=== PATIENT | female | born 1995 | race Caucasian/White ===

== ENCOUNTER 2018-07-28 04:26 | Emergency (ER) | payer BC ==
[~2018-07-28] VITALS: Ht 157.5 cm; Wt 70.5 kg
[2018-07-28 04:36] VITALS: Ht 157.5 cm; Wt 70.5 kg
[2018-07-28] MEDS ORDERED: PRENAVITE1 TAB PO (04:37)
[2018-07-28 05:27] LABS: BASOPHILS 0.7 % (0-2); EOSINOPHILS 4.5 % (0-7); HEMATOCRIT 35.3 % (36.0-48.0); HEMOGLOBIN 11.7 g/dL (12-16); IMMATURE GRANULOCYTES 0.1 % (0-5); LYMPHOCYTES 27.8 % (15-50); MCH 27.1 pg (26.0-34.0); MCHC 33.1 g/dL (31.0-37.0); MCV 81.9 fL (80.0-100.0); MEAN PLATELET VOLUME 10.6 fL (7.4-10.4); MONOCYTES 10.4 % (2-11); NEUTROPHILS 56.5 % (40-80); RBC 4.31 10x6/uL (4.00-5.40); RDW 13.7 % (11.5-14.5); WBC 8.5 10x3/uL (4.8-10.8)
[2018-07-28 05:38] LABS: PLATELET COUNT 238 10x3/uL (130-400)
[2018-07-28 05:43] LABS: ALBUMIN 3.4 g/dL (3.4-5.0); ALKALINE PHOSPHATASE 48 U/L (46-116); ALT (SGPT) 17 U/L (10-68); BILIRUBIN - TOTAL 0.75 mg/dL (0.2-1.3); CALC OSMOLALITY 271 mosm/kg (275-300); CALCIUM 8.7 mg/dL (8.5-10.1); CARBON DIOXIDE 24.2 mmol/L (21.0-32.0); CHLORIDE - SERUM 102 mmol/L (98-107); CREATININE - SERUM 0.6 mg/dL (0.6-1.3); GLUCOSE 102 mg/dL (74-106); POTASSIUM - SERUM 3.5 mmol/L (3.5-5.1); PROTEIN - SERUM 6.9 g/dL (6.4-8.2); SODIUM 136 mmol/L (136-145); UREA NITROGEN 12 mg/dL (7-18); eGFR NON AFRICAN AMERICAN > 90 mL/min (90-120)
[2018-07-28] MEDS ORDERED: ZOFRAN ODT4 MG/UDTAB PO (05:59)
[2018-07-28 06:00] LABS: APPEARANCE CLEAR (CLEAR); BILIRUBIN NEGATIVE (NEGATIVE); COLOR YELLOW (YELLOW); GLUCOSE NEGATIVE (NEGATIVE); KETONE NEGATIVE (NEGATIVE); NITRITE NEGATIVE (NEGATIVE); PROTEIN NEGATIVE (NEGATIVE); SPECIFIC GRAVITY 1.015 (1.005-1.020); UROBILINOGEN NORMAL (NORMAL)
[2018-07-28 06:07] LABS: HCG - QUANTITATIVE (MATERNAL) 46781 mIU/mL
[2018-07-28 08:44] VITALS: BP 110/63
== END 2018-07-28 08:45 | disposition home or self-care (01) ==
LOC: D.ER 04:26
PROVIDERS: Family Medicine
DX: O26.891 Other specified pregnancy related conditions, first trimester (principal); Z3A.01 Less than 8 weeks gestation of pregnancy; R10.9 Unspecified abdominal pain

== ENCOUNTER 2018-09-25 15:53 | Emergency (ER) | payer BC ==
[~2018-09-25] VITALS: Ht 157.5 cm; Wt 68.2 kg
[~2018-09-25 15:53] MED LIST: PRENAVITE1 TAB PO; ZOFRAN ODT4 MG/UDTAB PO
[2018-09-25 16:05] VITALS: Ht 157.5 cm; Wt 68.2 kg
[2018-09-25 17:00] LABS: BASOPHILS 0.2 % (0-2); EOSINOPHILS 2.3 % (0-7); HEMATOCRIT 34.1 % (36.0-48.0); HEMOGLOBIN 11.5 g/dL (12-16); IMMATURE GRANULOCYTES 0.2 % (0-5); LYMPHOCYTES 17.4 % (15-50); MCHC 33.7 g/dL (31.0-37.0); MCV 83.2 fL (80.0-100.0); MEAN PLATELET VOLUME 10.5 fL (7.4-10.4); MONOCYTES 6.4 % (2-11); NEUTROPHILS 73.5 % (40-80); PLATELET COUNT 229 10x3/uL (130-400); RDW 13.4 % (11.5-14.5); WBC 9.6 10x3/uL (4.8-10.8)
[2018-09-25 17:12] LABS: APPEARANCE CLEAR (CLEAR); BILIRUBIN NEGATIVE (NEGATIVE); COLOR YELLOW (YELLOW); GLUCOSE NEGATIVE (NEGATIVE); KETONE NEGATIVE (NEGATIVE); NITRITE NEGATIVE (NEGATIVE); PROTEIN NEGATIVE (NEGATIVE); UROBILINOGEN NORMAL (NORMAL)
[2018-09-25 17:15] LABS: BACTERIA MANY /hpf (NONE SEEN); EPITHELIAL CELLS 0-5 /hpf (0-5); MUCUS <1+ /lpf (NONE SEEN); RED CELLS - URINE 0-5 /hpf (0-5); WHITE CELLS - URINE 0-5 /hpf (0-5)
[2018-09-25 17:28] LABS: ALKALINE PHOSPHATASE 60 U/L (46-116); ALT (SGPT) 11 U/L (10-68); BILIRUBIN - TOTAL 0.34 mg/dL (0.2-1.3); CALC OSMOLALITY 276 mosm/kg (275-300); CALCIUM 8.5 mg/dL (8.5-10.1); CARBON DIOXIDE 25.1 mmol/L (21.0-32.0); CHLORIDE - SERUM 104 mmol/L (98-107); CREATININE - SERUM 0.5 mg/dL (0.6-1.3); GLUCOSE 75 mg/dL (74-106); POTASSIUM - SERUM 3.6 mmol/L (3.5-5.1); PROTEIN - SERUM 6.5 g/dL (6.4-8.2); SODIUM 140 mmol/L (136-145); UREA NITROGEN 9 mg/dL (7-18); eGFR NON AFRICAN AMERICAN > 90 mL/min (90-120)
[2018-09-25] MEDS ORDERED: GUAIFENESI100 MG/5 M PO (19:08)
[2018-09-25] MEDS ORDERED: KEFLEX500 MG PO (19:08)
[2018-09-25 19:24] VITALS: BP 101/64
== END 2018-09-25 19:25 | disposition home or self-care (01) ==
LOC: D.ER 15:53
PROVIDERS: Family Medicine
DX: O23.41 Unspecified infection of urinary tract in pregnancy, first trimester (principal); Z3A.14 14 weeks gestation of pregnancy; J06.9 Acute upper respiratory infection, unspecified

== ENCOUNTER 2018-10-29 12:02 | Emergency (ER) | payer BC, MEDICAID ==
[~2018-10-29] VITALS: Ht 157.5 cm; Wt 70.3 kg
[~2018-10-29 12:02] MED LIST changes: +GUAIFENESI100 MG/5 M PO; +KEFLEX500 MG PO
[2018-10-29 12:05] VITALS: Ht 157.5 cm; Wt 70.3 kg
[2018-10-29 12:46] LABS: APPEARANCE CLOUDY (CLEAR); BACTERIA MODERATE /hpf (NONE SEEN); BILIRUBIN NEGATIVE (NEGATIVE); COLOR YELLOW (YELLOW); EPITHELIAL CELLS 0-5 /hpf (0-5); GLUCOSE NEGATIVE (NEGATIVE); KETONE NEGATIVE (NEGATIVE); MUCUS <1+ /lpf (NONE SEEN); NITRITE NEGATIVE (NEGATIVE); PROTEIN NEGATIVE (NEGATIVE); RED CELLS - URINE 0-5 /hpf (0-5); UROBILINOGEN NORMAL (NORMAL); WHITE CELLS - URINE 0-5 /hpf (0-5)
[2018-10-29 13:06] LABS: BASOPHILS 0.4 % (0-2); EOSINOPHILS 1.3 % (0-7); HEMOGLOBIN 11.8 g/dL (12-16); IMMATURE GRANULOCYTES 0.4 % (0-5); LYMPHOCYTES 19.1 % (15-50); MCH 28.1 pg (26.0-34.0); MCHC 33.7 g/dL (31.0-37.0); MCV 83.3 fL (80.0-100.0); MEAN PLATELET VOLUME 10.8 fL (7.4-10.4); NEUTROPHILS 72.8 % (40-80); PLATELET COUNT 245 10x3/uL (130-400); RDW 13.4 % (11.5-14.5)
[2018-10-29 13:10] LABS: ALKALINE PHOSPHATASE 68 U/L (46-116); ALT (SGPT) 17 U/L (10-68); BILIRUBIN - TOTAL 0.84 mg/dL (0.2-1.3); CALC OSMOLALITY 272 mosm/kg (275-300); CALCIUM 8.8 mg/dL (8.5-10.1); CARBON DIOXIDE 25.3 mmol/L (21.0-32.0); CHLORIDE - SERUM 104 mmol/L (98-107); CREATININE - SERUM 0.6 mg/dL (0.6-1.3); GLUCOSE 78 mg/dL (74-106); POTASSIUM - SERUM 3.5 mmol/L (3.5-5.1); SODIUM 138 mmol/L (136-145); UREA NITROGEN 7 mg/dL (7-18); eGFR NON AFRICAN AMERICAN > 90 mL/min (90-120)
[2018-10-29 13:34] LABS: HCG - QUANTITATIVE (MATERNAL) 20236 mIU/mL
[2018-10-29 17:42] VITALS: BP 114/60
== END 2018-10-29 17:42 | disposition home or self-care (01) ==
LOC: D.ER 12:02
PROVIDERS: Family Medicine
DX: N93.9 Abnormal uterine and vaginal bleeding, unspecified (principal)

== ENCOUNTER 2018-10-30 14:24 | Outpatient (CLI) | payer BC, MEDICAID ==
[2018-10-29 12:05] VITALS: BMI 27.5
== END 2018-10-31 16:30 | disposition home or self-care (01) ==
LOC: D.LDO 14:24 → D.LD 19:57 → D.LDO 10-31 16:30
PROVIDERS: ATTEND Obstetrics & Gynecology
DX: O26.899 Other specified pregnancy related conditions, unspecified trimester (principal); Z3A.00 Weeks of gestation of pregnancy not specified

== ENCOUNTER → 2019-01-02 14:02 | Outpatient (CLI) | payer BC, MEDICAID ==
[2018-10-29 12:05] VITALS: BMI 27.5
[2019-01-02 16:09] LABS: BASOPHILS 0.2 % (0-2); EOSINOPHILS 2.3 % (0-7); HEMATOCRIT 33.1 % (36.0-48.0); HEMOGLOBIN 10.7 g/dL (12-16); IMMATURE GRANULOCYTES 0.3 % (0-5); LYMPHOCYTES 18.3 % (15-50); MCH 26.8 pg (26.0-34.0); MCHC 32.3 g/dL (31.0-37.0); MCV 82.8 fL (80.0-100.0); MEAN PLATELET VOLUME 10.7 fL (7.4-10.4); MONOCYTES 8.7 % (2-11); NEUTROPHILS 70.2 % (40-80); PLATELET COUNT 224 10x3/uL (130-400); RDW 12.6 % (11.5-14.5); WBC 9.4 10x3/uL (4.8-10.8)
[2019-01-02 16:53] LABS: APPEARANCE CLEAR (CLEAR); BILIRUBIN NEGATIVE (NEGATIVE); COLOR YELLOW (YELLOW); GLUCOSE NEGATIVE (NEGATIVE); KETONE NEGATIVE (NEGATIVE); NITRITE NEGATIVE (NEGATIVE); PROTEIN NEGATIVE (NEGATIVE); UROBILINOGEN NORMAL (NORMAL)
== END | disposition home or self-care (01) ==
LOC: D.LDO 14:02
PROVIDERS: ATTEND Obstetrics & Gynecology
DX: O26.899 Other specified pregnancy related conditions, unspecified trimester (principal); Z3A.00 Weeks of gestation of pregnancy not specified; R42 Dizziness and giddiness

== ENCOUNTER 2019-01-11 21:46 | Outpatient (CLI) | payer BC, MEDICAID ==
[2018-10-29 12:05] VITALS: BMI 27.5
[2019-01-11 22:33] LABS: APPEARANCE CLEAR (CLEAR); COLOR YELLOW (YELLOW)
[2019-01-11 22:34] LABS: BILIRUBIN NEGATIVE (NEGATIVE); GLUCOSE NEGATIVE (NEGATIVE); KETONE NEGATIVE (NEGATIVE); NITRITE NEGATIVE (NEGATIVE); PROTEIN NEGATIVE (NEGATIVE); SPECIFIC GRAVITY 1.015 (1.005-1.020); UROBILINOGEN NORMAL (NORMAL)
[2019-01-11 22:42] LABS: UDS - AMPHET NEGATIVE QUAL (NEGATIVE); UDS - BARB NEGATIVE QUAL (NEGATIVE); UDS - BENZO NEGATIVE QUAL (NEGATIVE); UDS - COCAINE NEGATIVE QUAL (NEGATIVE); UDS - OPIATE NEGATIVE QUAL (NEGATIVE); UDS - PCP NEGATIVE QUAL (NEGATIVE); UDS - THC POSITIVE QUAL (NEGATIVE)
[2019-01-11 23:36] LABS: BASOPHILS 0.1 % (0-2); EOSINOPHILS 1.2 % (0-7); HEMATOCRIT 31.5 % (36.0-48.0); HEMOGLOBIN 10.5 g/dL (12-16); IMMATURE GRANULOCYTES 0.4 % (0-5); MCH 26.6 pg (26.0-34.0); MCHC 33.3 g/dL (31.0-37.0); MCV 79.7 fL (80.0-100.0); MONOCYTES 5.5 % (2-11); NEUTROPHILS 78.8 % (40-80); PLATELET COUNT 226 10x3/uL (130-400); RBC 3.95 10x6/uL (4.00-5.40); RDW 12.7 % (11.5-14.5); WBC 12.4 10x3/uL (4.8-10.8)
[2019-01-11 23:53] LABS: ALBUMIN 2.5 g/dL (3.4-5.0); ALKALINE PHOSPHATASE 115 U/L (46-116); ALT (SGPT) 11 U/L (10-68); BILIRUBIN - TOTAL 0.57 mg/dL (0.2-1.3); CALC OSMOLALITY 269 mosm/kg (275-300); CALCIUM 8.4 mg/dL (8.5-10.1); CARBON DIOXIDE 23.4 mmol/L (21.0-32.0); CHLORIDE - SERUM 103 mmol/L (98-107); CREATININE - SERUM 0.5 mg/dL (0.6-1.3); GLUCOSE 77 mg/dL (74-106); POTASSIUM - SERUM 3.6 mmol/L (3.5-5.1); PROTEIN - SERUM 6.1 g/dL (6.4-8.2); SODIUM 137 mmol/L (136-145); UREA NITROGEN 5 mg/dL (7-18); eGFR NON AFRICAN AMERICAN > 90 mL/min (90-120)
== END 2019-01-12 00:35 | disposition home or self-care (01) ==
LOC: D.LDO 21:46 → D.LD 22:47 → D.LDO 01-12 00:35
PROVIDERS: ATTEND Obstetrics & Gynecology
DX: O21.9 Vomiting of pregnancy, unspecified (principal); Z3A.29 29 weeks gestation of pregnancy

== ENCOUNTER → 2019-03-02 19:05 | Outpatient (CLI) | payer MEDICAID ==
[2018-10-29 12:05] VITALS: BMI 27.5
[~2019-03-02 19:05] MED LIST changes: +PROTONIX40 MG PO
--- NOTE | 2019-03-02 19:45 | NUR ---
DR. ESTEBAN NOTIFIED AND REVIEWED PT'S BEHAVIOR AND ASSESSMENT RESULTS. PT IS A LOW RISK PER DR. ESTEBAN. DR. ESTEBAN STATED TO FIVE RESOURES TO PT AT TIME OF DISCHARGE. NO FURTHER ORDERS AT THIS TIME. RESOURCES REVIEWED WITH PT AND SHE VERBALIZED UNDERSTANDING.
[2019-03-02 20:29] LABS: UDS - AMPHET NEGATIVE QUAL (NEGATIVE); UDS - BARB NEGATIVE QUAL (NEGATIVE); UDS - BENZO NEGATIVE QUAL (NEGATIVE); UDS - COCAINE NEGATIVE QUAL (NEGATIVE); UDS - OPIATE NEGATIVE QUAL (NEGATIVE); UDS - PCP NEGATIVE QUAL (NEGATIVE); UDS - THC POSITIVE QUAL (NEGATIVE)
[2019-03-03 18:25] VITALS: BMI 33.9
== END | disposition home or self-care (01) ==
LOC: D.LDO 19:05
PROVIDERS: ATTEND Obstetrics & Gynecology
DX: O36.8190 Decreased fetal movements, unspecified trimester, not applicable or unspecified (principal); Z3A.00 Weeks of gestation of pregnancy not specified

== ENCOUNTER 2019-03-03 17:56 | Inpatient (IN) | payer MEDICAID ==
[~2019-03-03] VITALS: Ht 157.5 cm; Wt 83.9 kg
[~2019-03-03 17:56] MED LIST changes: -PROTONIX40 MG PO
[2019-03-03] MEDS ORDERED: PROTONIX40 MG PO (18:24)
[2019-03-03 18:25] VITALS: BP 112/56; Ht 157.5 cm; Wt 83.9 kg
[2019-03-03 19:08] LABS: HEMATOCRIT 31.5 % (36.0-48.0); HEMOGLOBIN 10.5 g/dL (12-16); MCH 25.1 pg (26.0-34.0); MCHC 33.3 g/dL (31.0-37.0); MCV 75.2 fL (80.0-100.0); MEAN PLATELET VOLUME 12.3 fL (7.4-10.4); RBC 4.19 10x6/uL (4.00-5.40); RDW 13.8 % (11.5-14.5); WBC 8.5 10x3/uL (4.8-10.8)
[2019-03-03 19:12] LABS: APPEARANCE CLEAR (CLEAR); BILIRUBIN NEGATIVE (NEGATIVE); COLOR YELLOW (YELLOW); GLUCOSE NEGATIVE (NEGATIVE); KETONE MODERATE mg/dL (NEGATIVE); NITRITE NEGATIVE (NEGATIVE); PROTEIN TRACE mg/dL (NEGATIVE); UROBILINOGEN NORMAL (NORMAL)
[2019-03-03 19:14] LABS: BACTERIA FEW /hpf (NONE SEEN); WHITE CELLS - URINE 0-5 /hpf (0-5)
[2019-03-03 19:15] LABS: MUCUS <1+ /lpf (NONE SEEN)
[2019-03-03 19:20] LABS: UDS - AMPHET NEGATIVE QUAL (NEGATIVE); UDS - BARB NEGATIVE QUAL (NEGATIVE); UDS - BENZO NEGATIVE QUAL (NEGATIVE); UDS - COCAINE NEGATIVE QUAL (NEGATIVE); UDS - OPIATE NEGATIVE QUAL (NEGATIVE); UDS - PCP NEGATIVE QUAL (NEGATIVE); UDS - THC POSITIVE QUAL (NEGATIVE)
--- NOTE | 2019-03-04 17:39 | MORECARE ---
CASE MANAGEMENT DISCHARGE SUMMARY PATIENT: ADELITA JOSEPH UNIT: [id number] ADM DATE: 03/03/19 AGE: 23 : [birth year] SEX: F ROOM/BED: D.1273 AUTHOR: DONNIE VERA PHYSICIAN: REFERRING PHYSICIAN: JAMAL GRAYSON MD DATE OF SERVICE: 03/04/19 Discharge Plan Patient Name: ADELITA JOSEPH Facility: [facility]:[place] : 1995 Planned Disposition: Home Anticipated Discharge Date: Discharge Date: Expected LOS: Initial Reviewer: [email or web address] Initial Review Date: 03/04/2019 Generated: 03/04/19 6:39 pm Comments DCP- Discharge Planning Updated by [email or web address]: Katie Luna on 03/04/19 4:[address] Patient Name: ADELITA JOSEPH Admission Status: Elective Accout number: [id number] Admission Date: 03-03-2019 : 1995 Admission Diagnosis: Attending: Jamal Grayson Current LOS: 1 Anticipated DC Date: Planned Disposition: Primary Insurance: MEDICAID [place] Discharge Planning Comments: DC PLAN: Home w/MOB & Maternal grandparents. MOB ADELITA JOSEPH, address [address] [place] [address]. Phone number: [phone]. DC NEEDS: None TRANSPORTATION: MOB HAS TRANSPORTATION WIC: Yes, already has appointment information. MEDICAID: Has not been set up yet. CAR SEAT: Yes FEEDING PLAN: Plans to formula feed. MOB states will use nursery water with formula. BABY NAME: BESSIE CHERRY FOB: MADDY CHERRY MOB: PLANS TO CARE FOR THE INFANT AT HOME. PLASTIC SURGEON: THE PLASTIC SURGEON LITIGATION [place] TODAY. CARE: MOB STATES CARE WITH DR. RAMIREZ SINCE EARLY . SUPPLIES: MOB states has diapers, bottles, crib, car seat and clothes. WATER SOURCE: city HEAT SOURCE: CENTRAL AIR CONDITIONING: yes, central air. CM met with MOB regarding dc planning/needs. MOB to return to her mom and dad's home where she lives. States home environment is safe. She states in addition to herself, 4 OTHER PEOPLE LIVE IN THE HOME. THE FOB, MATERNAL GRANDPARENTS, AND GRANDMOTHER. MOB's mom and dad live in the home and will help with the baby. MOB states this is her first child. Denies smokers, drug users, or etoh use in the home. MOB declined information on parenting classes. Denies any discharge needs at this time. CM will EMAIL Trenton Shah regarding Medicaid for baby. MOB STATES USED THC WHILE BECAUSE OF SEVERE NAUSEA. STATES IN NO LONGER USING THC. [facility] HAVE MET WITH HER TODAY. CM will continue to follow and assist as needed with dc planning/needs. Lining Closer: Katie Luna Patient Name: ADELITA JOSEPH Page [id number] at 1739 All edits/amendments must be made on the electronic document DICTATION DATE: 03/04/191738 BEATER BOSS: WALLACE 03/04/191738 RPT#: [id number] DC DATE: STATUS: ADM IN [address] [place] [address] END OF REPORT
[2019-03-04 20:44] VITALS: BP 104/53
[2019-03-05 07:30] VITALS: BP 108/55
[2019-03-05 07:47] LABS: BASOPHILS 0.3 % (0-2); EOSINOPHILS 1.7 % (0-7); IMMATURE GRANULOCYTES 0.2 % (0-5); LYMPHOCYTES 33.1 % (15-50); MCH 24.8 pg (26.0-34.0); MCHC 32.5 g/dL (31.0-37.0); MCV 76.1 fL (80.0-100.0); MEAN PLATELET VOLUME 12.1 fL (7.4-10.4); MONOCYTES 8.6 % (2-11); NEUTROPHILS 56.1 % (40-80); PLATELET COUNT 206 10x3/uL (130-400); RDW 14.2 % (11.5-14.5); WBC 8.7 10x3/uL (4.8-10.8)
[2019-03-05 07:51] LABS: HEMATOCRIT 24.9 % (36.0-48.0); HEMOGLOBIN 8.1 g/dL (12-16); RBC 3.27 10x6/uL (4.00-5.40)
[2019-03-06 07:13] LABS: RAPID PLASMA REAGIN Non Reactive (Non Reactive)
--- NOTE | 2019-03-06 17:20 | MORECARE ---
CASE MANAGEMENT DISCHARGE SUMMARY PATIENT: ADELITA JOSEPH UNIT: [id number] ADM DATE: 03/03/19 AGE: 23 : [birth year] SEX: F ROOM/BED: D.1273 AUTHOR: DONNIE VERA PHYSICIAN: REFERRING PHYSICIAN: JAMAL GRAYSON MD DATE OF SERVICE: 03/06/19 Discharge Plan Patient Name: ADELITA JOSEPH Facility: [facility]:[place] : 1995 Planned Disposition: Home Anticipated Discharge Date: Discharge Date: 03/05/2019 Expected LOS: Initial Reviewer: [email or web address] Initial Review Date: 03/04/2019 Generated: 03/06/19 6:20 pm DCP- Discharge Planning Updated by [email or web address]: Katie Luna on 03/04/19 4:[address] Patient Name: ADELITA JOSEPH Admission Status: Elective Accout number: [id number] Admission Date: 03-03-2019 : 1995 Admission Diagnosis: Attending: Jamal Grayson Current LOS: 1 Anticipated DC Date: Planned Disposition: Primary Insurance: [place]ID [place] Discharge Planning Comments: DC PLAN: Home w/MOB & Maternal grandparents. MOB ADELITA JOSEPH, address [address] [place] [id number]. Phone number: [phone]. DC NEEDS: None TRANSPORTATION: MOB HAS TRANSPORTATION WIC: Yes, already has appointment information. MEDICAID: Has not been set up yet. CAR SEAT: Yes FEEDING PLAN: Plans to formula feed. MOB states will use nursery water with formula. BABY NAME: BESSIE CHERRY FOB: MADDY CHERRY MOB: PLANS TO CARE FOR THE AT HOME. BAKERY CLERK: THE BAKERY CLERK DINKEY OPERATOR [place]ATE TODAY. CARE: MOB STATES CARE WITH DR. RAMIREZ SINCE EARLY . SUPPLIES: MOB states has diapers, bottles, crib, car seat and clothes. WATER SOURCE: city HEAT SOURCE: CENTRAL AIR CONDITIONING: yes, central air. met with MOB regarding dc planning/needs. MOB to return to her mom and dad's home where she lives. States home environment is safe. She states in addition to herself, 4 OTHER PEOPLE LIVE IN THE HOME. THE FOB, MATERNAL GRANDPARENTS, AND GRANDMOTHER. MOB's mom and dad live in the home and will help with the baby. MOB states this is her first child. Denies smokers, drug users, or etoh use in the home. MOB declined information on parenting classes. Denies any discharge needs at this time. CM will EMAIL Trenton Shah regarding Medicaid for baby. MOB STATES USED THC WHILE BECAUSE OF SEVERE NAUSEA. STATES IN NO LONGER USING THC. STATES CHILD PROTECTIVE SERVICES HAVE MET WITH HER TODAY. CM will continue to follow and assist as needed with dc planning/needs. Billiard Table Assembler: Katie AWAD export: 03/04/19 4:39 pm Patient Name: ADELITA JOSEPH Page [phone] at 1720 All edits/amendments must be made on the electronic document DICTATION DATE: 03/06/191719 INSTALLMENT AGENT: WALLACE 03/06/19 1720 RPT#: [id number] DC DATE:03/05/19 STATUS: DIS IN [facility] [address] [place] [address] END OF REPORT
[2019-03-10 15:08] LABS: UDSC - AMPHET Negative ng/mL (Cutoff=1000); UDSC - BARB Negative ng/mL (Cutoff=300); UDSC - BENZO Negative ng/mL (Cutoff=300); UDSC - COC Negative ng/mL (Cutoff=300); UDSC - METH Negative ng/mL (Cutoff=300); UDSC - OPIATES Negative ng/mL (Cutoff=300); UDSC - PCP Negative ng/mL (Cutoff=25); UDSC - PROPOXY Negative ng/mL (Cutoff=300); UDSC - THC Positive (Cutoff=50)
== END 2019-03-05 16:15 | disposition home or self-care (01) | DRG 998 ==
LOC: D.LDO 17:56 → D.LD 18:19
PROVIDERS: ADMIT Obstetrics & Gynecology; ATTEND Obstetrics & Gynecology
PROC: 10D07Z6 Extraction of Products of Conception, Vacuum, Via Natural or Artificial Opening (ICD-10-PCS; principal; 2019-03-04)
DX: O98.82 Other maternal infectious and parasitic diseases complicating childbirth (principal); O99.324 Drug use complicating childbirth; Z3A.37 37 weeks gestation of pregnancy

== ENCOUNTER 2020-10-12 19:06 | Emergency (ER) | payer MEDICAID ==
[2019-03-03 18:25] VITALS: Ht 157.5 cm; Wt 72.7 kg
[~2020-10-12] VITALS: Ht 157.5 cm; Wt 72.7 kg
[~2020-10-12 19:06] MED LIST changes: +PROTONIX40 MG PO
[2020-10-12 20:16] LABS: BASOPHILS 0.8 % (0-2); EOSINOPHILS 5.4 % (0-7); HEMATOCRIT 37.3 % (36.0-48.0); IMMATURE GRANULOCYTES 0.1 % (0-5); LYMPHOCYTE ABS# 2.17 10x3/uL (1.18-3.74); LYMPHOCYTES 30.7 % (15-50); MCHC 32.2 g/dL (31.0-37.0); MCV 83.8 fL (80.0-100.0); MEAN PLATELET VOLUME 11.3 fL (7.4-10.4); MONOCYTES 7.5 % (2-11); NEUTROPHIL ABS# 3.91 10x3/uL (1.56-6.13); NEUTROPHILS 55.5 % (40-80); RBC 4.45 10x6/uL (4.00-5.40); RDW 14.2 % (11.5-14.5); WBC 7.1 10x3/uL (4.8-10.8)
[2020-10-12 20:20] LABS: PLATELET COUNT 268 10x3/uL (130-400)
[2020-10-12 20:25] LABS: CALC OSMOLALITY 279 mosm/kg (275-300); CALCIUM 9.1 mg/dL (8.5-10.1); CARBON DIOXIDE 28.3 mmol/L (21.0-32.0); CHLORIDE - SERUM 105 mmol/L (98-107); CREATININE - SERUM 0.7 mg/dL (0.6-1.3); GLUCOSE 83 mg/dL (74-106); POTASSIUM - SERUM 3.5 mmol/L (3.5-5.1); SODIUM 141 mmol/L (136-145); UREA NITROGEN 13 mg/dL (7-18); eGFR NON AFRICAN AMERICAN > 90 mL/min (90-120)
[2020-10-12 20:31] LABS: ALKALINE PHOSPHATASE 63 U/L (30-120); ALT (SGPT) 21 U/L (10-68); BILIRUBIN - TOTAL 0.87 mg/dL (0.2-1.3); PROTEIN - SERUM 7.7 g/dL (6.4-8.2)
[2020-10-12 21:33] LABS: BILIRUBIN NEGATIVE (NEGATIVE); KETONE NEGATIVE (NEGATIVE); NITRITE NEGATIVE (NEGATIVE); UROBILINOGEN NORMAL mg/dL (< 2)
[2020-10-12 21:36] LABS: HCG URINE NEGATIVE (NEGATIVE)
[2020-10-12] MEDS ORDERED: CYCLOBENZAPRINE10 MG PO (21:36)
[2020-10-12 22:34] VITALS: BP 132/80
== END 2020-10-12 22:35 | disposition home or self-care (01) ==
LOC: D.ER 19:06
PROVIDERS: Family Medicine
DX: M54.5 Low back pain (principal)